=== PATIENT | male | born 1960 | race Caucasian/White ===

== ENCOUNTER 2017-01-16 06:56 | Day surgery (SDC) | payer BC ==
--- NOTE | 2017-01-09 13:29 | HP ---
Chief Complaint - Chief Complaint Date of Service: 01/09/17 Chief Complaint: here for a colon scope History of Present Illness: 56 year old male who presents for screening colonoscopy. Unsure if father had colon cancer, thinks he did, but he had a resection of colon at the [facility] [place]. No blood in stools, no changes in bowels, no abdominal pain, no hemorrhoids and no weight loss. 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 Father Family History - Cardiac/Respiratory: Other - pacemaker Family History - Cancer: No pertinent family hx - Social History Living Situations: spouse Abuse History: No History of abuse Psych History: No pertinent hx Does anyone smoke in the home?: No Have you smoked in the past 12 months: No Alcohol Use: rarely Drug Use: none - Immunizations Immunizations Up to Date: Yes Hx Pneumococcal Vaccination: No History of Influenza Vaccine: Yes Review Of Systems (GEN) - Review of Systems Generalized/Overall Review: Absent: Weakness, Fever, Malaise, Weight loss EENTM: Present: No Symptoms Reported Respiratory: Absent: Cough, Shortness of Breath Cardiac: Absent: Chest Pain, Palpitations Abdominal: Absent: Nausea, Vomiting, Abdominal Pain, Constipation, Diarrhea, Bright blood from rectum Genitourinary: Present: No Symptoms Reported Musculoskeletal: Present: Joint Pain - occasional. Absent: Back Pain, Neck Pain Skin: Present: No Symptoms Reported Allergies/Adverse Reactions: Allergies Allergy/AdvReac Type Severity Reaction Status Date / Time No Known Allergies Allergy Verified 06/18/15 09:44 Home Medications: HOME MEDICATIONS Atorvastatin Calcium [Lipitor] 10 mg PO DAILY 01/02/14 [Last Taken 06/17/15] Exam - Exam Vital Signs: Vital Signs - Last Taken Temp 36.9 C 01/09/17 Pulse 75 Resp 14 BP 128/80 06/18/15 12:30 Pulse Ox Constitutional: Present: Alert, Oriented x3, Cooperative, Well developed, Well nourished, No distress ENT Exam: Present: normal ENT inspection Eye Exam: bilateral eye: normal inspection Neck: Present: full range of motion Breasts: Present: Exam deferred Respiratory: Present: lungs clear, normal breath sounds, no respiratory distress Cardiovascular/Chest: Present: regular rate, rhythm, no edema, no murmur Abdomen: Present: Normal bowel sounds, soft, nontender /Rectal: Present: Exam deferred Extremity: Present: normal range of motion, normal inspection Skin Exam: Present: normal color Neurologic: Present: no motor/sensory deficits, alert, normal mood/affect Appearance: Present: appropriate appearance, appropriate insight, no memory impairment, denies illness Eye contact: Present: cooperative, good eye contact, normal speech Thoughts: Present: normal thought pattern Assessment/Plan - Narrative Narrative: I discussed the [facility] for a colonoscopy and he wishes to proceed. Discussed the Prep (Suprep) and he understands the low risk of perforation and bleeding. Discussed the fact that he has no upper GI symptoms and no history of Arthur's that he does not need the EGD at this time. - Assessment/Plan (1) Screening for colon cancer Problem: Acute
[~2017-01-16 06:56] MED LIST: RINGERS SOLUTION,LACTATED 1,000 ML IV PRN
--- OUTSIDE RECORDS SUMMARY | 2017-01-16 07:00 | XMS REPORT | Continuity of Care Document ---
:1960 Author Organization [facility] ([facility]) Address [address] [place] [address] Phone [phone] Care Team Providers Name Role Phone Landen Lewis Primary Care Provider [phone] Source Comments This disclosure is being made pursuant to the Care Everywhere program, applicable federal and state laws, and may not contain all informaitonavailable regarding this patient.[facility] ([facility]) Active Allergies and Adverse Reactions Allergen Noted Date Severity Reactions Comments No Known Allergies 11/01/2012 NO REACTION Current Medications Prescription Sig. Disp. Refills Start Date End Date Status atorvastatin (LIPITOR) 10 Take 10 mg by Active mg tablet mouth every evening. valACYclovir (VALTREX) 500 Take 500 mg by Active mg tablet mouth 2 times daily as needed. Indications: Takes prn cold sores Active Problems Problem Noted Date Elevated prostate specific antigen (PSA) 11/22/2012 Social History Tobacco Use Types Packs/Day Years Used Date Never Assessed Last Filed Vital Signs Vital Sign Reading Time Taken Blood Pressure 121/73 11/22/2012 12:58 PM MEAT TEAM LEAD Pulse 72 11/22/2012 12:58 PM [employer]AT TEAM LEAD Temperature 36.7 C (98.1 F) 11/22/2012 12:58 PM MEAT TEAM LEAD Respiratory Rate 18 11/22/2012 12:58 PM MEAT TEAM LEAD Height 1.829 m (6') 11/22/2012 12:58 PM MEAT TEAM LEAD Weight 85.276 kg (188 lb) 11/22/2012 12:58 PM MEAT TEAM LEAD Body Mass Index 25.49 11/22/2012 12:58 PM MEAT TEAM LEAD Oxygen Saturation 99% 11/22/2012 12:58 PM MEAT TEAM LEAD Plan of Care Health Maintenance Due Date Last Done Comments HCV Screening 1960 Hepatitis B Vaccine (1 of 3 - Primary Series) 1960 Tdap Vaccine 1971 Lipid Disorder Screening 1978 MMR Vaccine 1978 Td Vaccine 1978 Colonoscopy 2010 Prostate Cancer Screening 2010 Influenza Vaccine: Seasonal (#1) 06/19/2016 Results from Last 3 Months Not on file
[2017-01-16] MEDS ORDERED: RINGERS SOLUTION,LACTATED 1,000 ML IV ONE (07:30)
[2017-01-16] MEDS ORDERED: RINGERS SOLUTION,LACTATED 1,000 ML IV PRN (08:35)
--- NOTE | 2017-01-16 08:38 | OR ---
Operative Report - Dictated Report Narrative: DATE OF PROCEDURE: 01/16 2017 PREOPERATIVE DIAGNOSIS: #1 Screening colonoscopy POSTOPERATIVE DIAGNOSIS: #1 Screening colonoscopy OPERATION: Colonoscopy SURGEON: Lj Hopkins M.D., FACS ANESTHESIA : ARMORED [employer]IVER sedation INDICATIONS: This is 56 year old male who presents for a screening colonoscopy. I have discussed the risks, benefits, indications, and contraindications for colonoscopy with the possibility of biopsy and/or polypectomy. He understands, agrees, and wishes to proceed. He has undergone a SUPREP and has tolerated it well. PROCEDURE: The patient was brought to the operating theater and placed into the left lateral decubitus position. The patient underwent sedation per anesthesia , and a digital rectal exam was performed. This was noted to be unremarkable. The patient was noted to have no internal or external hemorrhoids. The Olympus video colonoscope was introduced and advanced into the rectum. The rectum was normal in appearance. The scope was then advanced through the sigmoid, where no diverticular disease was noted. The scope was then advanced to the cecum using standard reduction techniques. The ileocecal valve was noted. The prep appeared to be good with a [place] prep score of 8. The scope was withdrawn slowly as the ascending, transverse, descending, and sigmoid colon were examined in a circumferential fashion. The scope was brought back into the rectum where it was retroflexed in the lower rectum was examined. The air was decompressed, and the scope was then removed. Withdrawal time was 11 minutes. POSTOPERATIVE CONDITION: The patient was awakened and taken to the ambulatory surgery center in good condition. No complications were encountered. FINDINGS: Long tortuous colon no diverticulosis Specimens: None EBL: 0 The findings were discussed with the patient and his . I recommend a follow -up colonoscopy in 10 years for screening purposes.
[2017-01-16 10:06] VITALS: BP 107/66
== END 2017-01-16 06:57 | disposition home or self-care (01) ==
LOC: AMB 06:56
PROVIDERS: ATTEND Surgery
PROC: 0DJD8ZZ Inspection of Lower Intestinal Tract, Via Natural or Artificial Opening Endoscopic (ICD-10-PCS; principal; 2017-01-16 08:00)
DX: Z12.11 Encounter for screening for malignant neoplasm of colon (principal); K21.9 Gastro-esophageal reflux disease without esophagitis; Z68.23 Body mass index [BMI] 23.0-23.9, adult